=== PATIENT | male | born 1965 | race Caucasian/White ===

== ENCOUNTER 2019-10-13 10:06 | Day surgery (SDC) | payer BC ==
[~2019-10-13 10:06] MED LIST: LACTATED RINGERS 1,000 ML IV SCH
[2019-10-13 10:46] VITALS: TEMP 97.4
[2019-10-13] MEDS ORDERED: LIDOCAINE 1% (10MG/ML) FOR IV START INTRADERMA ONE (10:47)
[2019-10-13] MEDS ORDERED: LACTATED RINGERS 1,000 ML IV ONE (10:47)
[2019-10-13] MEDS ORDERED: PROPOFOL 10 MG/ML 20 ML VIAL IV ONE (11:51)
--- NOTE | 2019-10-13 12:25 | P.PCN ---
Date of Procedure: 10/13/19 Procedure(s) Performed: Brief history: Patient is a pleasant 54-year-old white male scheduled for an elective upper endoscopy as well as colonoscopy as a part of evaluation of GERD and screening for colorectal Procedure performed: Esophagogastroduodenoscopy biopsy Colonoscopy Preoperative diagnosis: GERD Screening for colon cancer Anesthesia: MAC Procedure: After informed consent was obtained from the patient was brought into the endoscopy unit and IV sedation was administered by anesthesia under continuous monitoring. Initially upper endoscopy was done. The Olympus GF 160 video endoscope was inserted inserted into the mouth and esophagus intubated without any difficulty and was gradually advanced into the stomach and duodenum and carefully examined. The bulb and second part of the duodenum appeared normal. The scope was then withdrawn into the stomach adequately insufflated with air and upon careful examination the antrum and body, cardia and fundus appeared normal. The scope was then withdrawn into the esophagus. Small hiatal hernia noted. The GE junction was located at 37 cm to the incisors. There was long segment of Lang's esophagus extending from 34-30 cm from the incisors and multiple biopsies were done from this area. The Rest of the esophagus appeared normal. Patient tolerated the procedure well. At this time the patient continued to remain sedation. Initial digital rectal examination was normal. Olympus CF 160 video colonoscope was then inserted into the rectum and gradually advanced to the cecum without any difficulty. Careful examination was performed as the scope was gradually being withdrawn. The prep was excellent. The cecum, ascending colon, transverse colon, descending colon, sigmoid colon and rectum appeared normal. Retroflexion was performed in the rectum and no lesions were noted. Patient tolerated the procedure well. Impression: 1 Upper endoscopy revealed small hiatal hernia AndLong segment Lang's esophagus 2. Colonoscopy was essentially within normal limits with no evidence of colorectal neoplasia. Recommendations: Findings of this examination were discussed with the patient as well as his family. He was advised to follow with the biopsy results. If the biopsy confirms prescription for her family. He can have a repeat upper endoscopy in 2 years. He was advised to continue with omeprazole 20 mg daily and follow antireflux measures. He can have a repeat screening colonoscopy in 10 years.
[2019-10-13 12:29] VITALS: BP 140/77; PULSE 66; RESP 16
== END 2019-10-13 13:09 | disposition home or self-care (01) ==
LOC: ORWHC2ENDO 10:06
PROVIDERS: ATTEND Internal Medicine Gastroenterology
DX: Z12.11 Encounter for screening for malignant neoplasm of colon (principal); K22.70 Barrett's esophagus without dysplasia; K21.9 Gastro-esophageal reflux disease without esophagitis; K44.9 Diaphragmatic hernia without obstruction or gangrene; E78.5 Hyperlipidemia, unspecified; Z98.890 Other specified postprocedural states; Z79.891 Long term (current) use of opiate analgesic; Z79.899 Other long term (current) drug therapy; Z88.5 Allergy status to narcotic agent
CPT/HCPCS: 88305; 43239; J2704; G0121

== ENCOUNTER 2021-09-09 19:49 | Emergency (ER) | payer BC ==
[2021-09-09 20:02] VITALS: BP 154/85; PULSE 69; RESP 20; TEMP 98.3
--- NOTE | 2021-09-09 20:54 | XR ---
EXAMINATION TYPE: XR chest 2V DATE OF EXAM: 09/09/2021 COMPARISON: NONE HISTORY: Ankle pain TECHNIQUE: 2 views FINDINGS: Heart and mediastinum are normal. Lungs are clear. Diaphragm is normal. Bony thorax appears intact. IMPRESSION: Normal chest.
[2021-09-09 21:32] LABS: ALT 32 U/L (4-49); AST 31 U/L (17-59); African American GFR (CKD) >90 (>60 ml/min/1.73 sqM); Albumin 4.5 g/dL (3.5-5.0); Alkaline Phosphatase 83 U/L (38-126); Amylase 77 U/L (30-110); Anion Gap 8 mmol/L; Blood Urea Nitrogen 14 mg/dL (9-20); Calcium 9.2 mg/dL (8.4-10.2); Carbon Dioxide 26 mmol/L (22-30); Chloride 103 mmol/L (98-107); Glucose 95 mg/dL (74-99); Lipase 62 U/L (23-300); Non-African American GFR(CKD) >90 (>60 ml/min/1.73 sqM); Potassium 4.1 mmol/L (3.5-5.1); Sodium 137 mmol/L (137-145); Total Bilirubin 0.5 mg/dL (0.2-1.3); Total Protein 7.5 g/dL (6.3-8.2)
[2021-09-09 21:56] LABS: INR 0.9 (<1.2); Partial Thromboplastin Time 24.1 sec (22.0-30.0); Prothrombin Time 10.1 sec (9.0-12.0)
[2021-09-09 21:58] LABS: Basophils # (A) 0.1 k/uL (0-0.2); Basophils % (A) 1 %; Eosinophils # (A) 0.1 k/uL (0-0.7); Eosinophils % (A) 2 %; HCT 48.4 % (39.0-53.0); HGB 16.6 gm/dL (13.0-17.5); Lymphocytes # (A) 2.2 k/uL (1.0-4.8); Lymphocytes % (A) 25 %; MCH 31.3 pg (25.0-35.0); MCHC 34.4 g/dL (31.0-37.0); Mean Platelet Volume 8.4; Monocytes # (A) 0.5 k/uL (0-1.0); Monocytes % (A) 5 %; Neutrophils # (A) 5.8 k/uL (1.3-7.7); Neutrophils % (A) 65 %; Platelet Count 261 k/uL (150-450); RBC 5.31 m/uL (4.30-5.90); RDW 13.2 % (11.5-15.5); WBC 8.9 k/uL (3.8-10.6)
== END 2021-09-10 00:15 | disposition left against medical advice (07) ==
LOC: EC 19:49
DX: Z53.9 Procedure and treatment not carried out, unspecified reason (principal)
CPT/HCPCS: 36415; 71046; 80053; 82150; 83690; 84484; 85025; 85610; 85730; 93005; 99499

== ENCOUNTER → 2021-09-24 | Outpatient (CLI) | payer BC ==
--- NOTE | 2021-09-24 07:11 | CT ---
EXAMINATION TYPE: CT brain wo con DATE OF EXAM: 09/24/2021 HISTORY: headache and dizziness CT DLP: 1054.2 mGycm. Automated Exposure Control for Dose Reduction was Utilized. TECHNIQUE: CT scan of the head is performed without contrast. COMPARISON: None. FINDINGS: There is no acute intracranial hemorrhage or midline shift identified. Ventricles and sul ci are within normal limits in size for patient's age. Shin-white matter differentiation is maintaine d. Surgical plate and right orbital floor noted. Globes are intact bilaterally. Paranasal sinuses are grossly clear. Some vascular calcification distal internal carotid arteries is present. No suspiciou s opacification of mastoid air cells. IMPRESSION: No acute intracranial hemorrhage or midline shift.
== END | disposition home or self-care (01) ==
LOC: RADCTMAIN 06:33
PROVIDERS: ATTEND Family Medicine
DX: R51.9 Headache, unspecified (principal)
CPT/HCPCS: 70450

== ENCOUNTER → 2021-12-14 | Outpatient (CLI) | payer BC ==
--- NOTE | 2021-12-14 13:19 | US ---
EXAMINATION TYPE: US carotid duplex BILAT DATE OF EXAM: 12/14/2021 COMPARISON: NONE CLINICAL HISTORY: R55 SYNCOPE, M54.50 LOW BACK PAIN, M51.36 DDD. Syncope TECHNIQUE: Carotid duplex ultrasound examination. Indirect Doppler criteria was utilized. FINDINGS: EXAM MEASUREMENTS: RIGHT: Peak Systolic Velocity (PSV) cm/sec ----- Right CCA: 93.9 ----- Right ICA: 109.2 ----- Right ECA: 136.6 ICA/CCA ratio: 1.2 RIGHT: End Diastole cm/sec ----- Right CCA: 25.6 ----- Right ICA: 17.1 ----- Right ECA: 23.6 LEFT: Peak Systolic Velocity (PSV) cm/sec ----- Left CCA: 77.5 ----- Left ICA: 84.0 ----- Left ECA: 118.5 ICA/CCA ratio: 1.1 LEFT: End Diastole cm/sec ----- Left CCA: 23.1 ----- Left ICA: 32.3 ----- Left ECA: 15.1 VERTEBRALS (direction of flow): Right Vertebral: Antegrade Left Vertebral: Antegrade Rhythm: Normal HEALTH FACILITIES SURVEYOR NOTES: No significant stenosis seen IMPRESSION: Less than 50% stenosis of the bilateral carotid bifurcations. Criteria for Assigning % of Stenosis / Diameter reduction (Estimation based on the indirect measurements of the internal carotid artery velocities (ICA PSV). 1. Normal (no stenosis)=ICA PSV < 125 cm/s: ratio < 2.0: ICA EDV<40 cm/s. 2. Less than 50% stenosis=ICA PSV < 125 cm/s: ratio < 2.0: ICA EDV<40 cm/s. 3. 50 to 69% stenosis=ICA PSV of 125 to 230 cm/s: ration 2.0 ? 4.0: ICA EDV 40-100 cm/s. 4. Greater than 70% stenosis to near occlusion= ICA PSV > 230 cm/s: ratio > 4.0: ICA EDV > 100 cm/s. 5. Near occlusion= ICA PSV velocities may be low or undetectable: variable ratio and ICA EDV. 6. Total occlusion=unable to detect flow.
--- NOTE | 2021-12-14 15:55 | CT ---
EXAMINATION TYPE: CT lumbar spine wo con DATE OF EXAM: 12/14/2021 COMPARISON: 05/09/20142014 HISTORY: 56-year-old male M5 4.50, low back pain, no injury TECHNIQUE: Contiguous axial scanning of the lumbar spine without IV contrast. Coronal and sagittal re constructions performed. CT DLP: 1115.4 mGycm Automated exposure control for dose reduction was used. FINDINGS: Small hiatal hernia. Vertebral body heights are preserved and alignment is maintained. Facet arthropathy lower lumbar spin e. Trace grade 1 retrolisthesis L3-L4 is unchanged. Mild disc bulging L3-L4, L4-L5, and L5-S1 impressing on the ventral thecal sac but not contributing to any significant spinal canal stenosis. On the right, changes result in moderate neuroforaminal stenosis at L5-S1. On the left, changes result in mild neuroforaminal stenosis at L4-L5 and L5-S1. IMPRESSION: 1. FACET ARTHROPATHY LOWER LUMBAR SPINE. TRACE GRADE 1 RETROLISTHESIS AT L3-L4 IS UNCHANGED. 2. MILD DEGENERATIVE DISC DISEASE WITH DISC BULGING IN THE MID AND LOWER LUMBAR SPINE. NO LARGE FOCAL DISC HERNIATION OR SIGNIFICANT SPINAL CANAL STENOSIS. 3. CHANGES RESULT IN A MODERATE RIGHT NEUROFORAMINAL STENOSIS AT L5-S1. MILD ON THE LEFT AT L4-L5 AND L5-S1. 4. SMALL HIATAL HERNIA.
== END | disposition home or self-care (01) ==
LOC: RADUSWWP 12:12
PROVIDERS: ATTEND Psychiatry & Neurology Neurology
DX: I65.23 Occlusion and stenosis of bilateral carotid arteries (principal); M51.36 Other intervertebral disc degeneration, lumbar region; M47.816 Spondylosis without myelopathy or radiculopathy, lumbar region; M43.16 Spondylolisthesis, lumbar region; M99.73 Connective tissue and disc stenosis of intervertebral foramina of lumbar region; K44.9 Diaphragmatic hernia without obstruction or gangrene
CPT/HCPCS: 72131; 93880